=== PATIENT | female | born 1990 | race African-American/Black ===

== ENCOUNTER 2016-08-09 19:05 | Emergency (ER) | payer OTHER ==
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
[2016-08-09] MEDS ORDERED: IBUPROFEN 600 MG TABLET (FP) PO ONE ×2 (19:36→19:53)
[2016-08-09 19:49] VITALS: BP 115/70; PULSE 75; TEMP 98.1; BMI 30.7
== END 2016-08-09 20:00 | disposition home or self-care (01) ==
LOC: FER 19:05
DX: S16.1XXA Strain of muscle, fascia and tendon at neck level, initial encounter (principal); S39.012A Strain of muscle, fascia and tendon of lower back, initial encounter; V43.62XA Car passenger injured in collision with other type car in traffic accident, initial encounter; Y93.89 Activity, other specified; Y92.410 Unspecified street and highway as the place of occurrence of the external cause
CPT/HCPCS: 99282-25

== ENCOUNTER 2017-01-04 18:10 | Emergency (ER) | payer SELFPAY ==
[2017-01-04 18:18] VITALS: BP 107/65; PULSE 89; TEMP 99.4; BMI 32.8
[2017-01-04] MEDS ORDERED: IBUPROFEN 600 MG TABLET (FP) PO ONE ×2 (18:35→18:37)
[2017-01-04] MEDS ORDERED: SULFAMETHOXAZOLE/TRIMETHOPRIM 800MG/160MG D.S. TABLET PO ONE (18:35)
--- NOTE | 2017-01-04 18:35 | PDOC ---
History of Present Illness <Eli Hester - Last Filed: 01/04/17 18:36> - General History Source: Patient Exam Limitations: No Limitations - History of Present Illness Initial Comments: 01/04/17 18:39 The patient is a 26 year old female, with a significant past medical history of abscesses on her buttocks s/p drainage, who presents to the emergency department with an abscess on the right side of her buttocks for the past 2 days. She reports that the abscess has now become painful. She describes her pain as mild, without radiation. She notes that the pain is exacerbated when she sits down. The patient denies fever, chills, nausea, vomit, diarrhea and constipation. Denies dysuria, frequency, urgency and hematuria. Allergies: None Past surgical history: None reported Social history: Alcohol use. No tobacco or drug use reported <Delfino Lynn - Last Filed: 01/04/17 18:39> - General Chief Complaint: Abscess Boil Stated Complaint: right buttox boil Past History - Past Medical History Other medical history: denies - Psycho/Social/Smoking Cessation Hx Anxiety: No Suicidal Ideation: No Smoking History: Never smoked Number of Cigarettes Smoked Daily: 4 Information on smoking cessation initiated: Yes 'Breaking Loose' booklet given: 01/04/17 Hx Alcohol Use: No Drug/Substance Use Hx: No Substance Use Type: Alcohol <MirEli - Last Filed: 01/04/17 18:36> <Delfino Lynn - Last Filed: 01/04/17 18:39> - Past Medical History Allergies/Adverse Reactions: Allergies Allergy/AdvReac Type Severity Reaction Status Date / Time No Known Allergies Allergy Verified 01/04/17 18:11 Home Medications: Ambulatory Orders Ibuprofen 600 mg PO TID PRN #30 tablet MDD 3 01/04/17 Sulfamethoxazole/Trimethoprim [Bactrim Ds Tablet] 1 each PO BID #14 tablet 01/04 Review of Systems - Review of Systems Able to Perform ROS?: Yes Comments:: 01/04/17 18:39 GENERAL/CONSTITUTIONAL: No fever or chills. No weakness. HEAD, EYES, EARS, NOSE AND THROAT: No change in vision. No ear pain or discharge. No sore throat. CARDIOVASCULAR: No chest pain or shortness of breath RESPIRATORY: No cough, wheezing, or hemoptysis. GASTROINTESTINAL: No nausea, vomiting, diarrhea or constipation. GENITOURINARY: No dysuria, frequency, or change in urination. MUSCULOSKELETAL: No joint or muscle swelling or pain. No neck or back pain. SKIN: (+) Right buttocks abscess. NEUROLOGIC: No headache, vertigo, loss of consciousness, or change in strength/ sensation. ENDOCRINE: No increased thirst. No abnormal weight change HEMATOLOGIC/LYMPHATIC: No anemia, easy bleeding, or history of blood clots. ALLERGIC/IMMUNOLOGIC: No hives or skin allergy. <Delfino Lynn - Last Filed: 01/04/17 18:39> *Physical Exam - Vital Signs Last Vital Signs Temp Pulse Resp BP Pulse Ox 99.4 F 89 18 107/65 100 01/04/17 18:11 01/04/17 18:11 01/04/17 18:11 01/04/17 18:11 01/04/17 18:11 <Eli Hester - Last Filed: 01/04/17 18:36> - Vital Signs Last Vital Signs Temp Pulse Resp BP Pulse Ox 99.4 F 89 18 107/65 100 01/04/17 18:11 01/04/17 18:11 01/04/17 18:11 01/04/17 18:11 01/04/17 18:11 - Physical Exam Comments: 01/04/17 18:39 GENERAL: Awake, alert, and fully oriented, in no acute distress HEAD: No signs of trauma, normocephalic, atraumatic EYES: PERRLA, EOMI, sclera anicteric, conjunctiva clear ENT: Auricles normal inspection, hearing grossly normal, nares patent, oropharynx clear without exudates. Moist mucosa NECK: Normal ROM, supple, no lymphadenopathy, JVD, or masses LUNGS: No distress, speaks full sentences, clear to auscultation bilaterally HEART: Regular rate and rhythm, normal S1 and S2, no murmurs, rubs or gallops, peripheral pulses normal and equal bilaterally. ABDOMEN: Soft, nontender, normoactive bowel sounds. No guarding, no rebound. No masses EXTREMITIES: Normal inspection, Normal range of motion, no edema. No clubbing or cyanosis. SKIN: (+) Right buttock 2 by 1 inch indurated area with central fluctuance and a small abrasion. Warm, Dry, normal turgor. <Delfino Lynn - Last Filed: 01/04/17 18:39> Procedures - Incision and Drainage I&D Site: Right: Buttock Betadine cleansed: Yes Anesthesia: 1% Lidocaine Blade Size: 11 Attempts: 1 Plain Packing: No Complications: none Dressing: Yes Progress: 01/04/17 18:36 express 2 ml purulence. no packing placed. <Eli Hester - Last Filed: 01/04/17 18:36> Medical Decision Making - Medical Decision Making 01/04/17 18:33 26 yo F with no pmhx here wtih /co right buttock pain/ boil. stats started 2 days ago. now got worse has had similar in the past which required draining. no f/c no vaginal discharge. no urinary complaints. no difficulty with bm. not . on exam awake alert lung and heart exam normal. abd soft NT. right buttock with 2 x 3 in abscess indurated, erythematous. plan: i &D, irrigate. abx. dc . <Eli Hester - Last Filed: 01/04/17 18:36> *DC/Admit/Observation/Transfer - Discharge Dispostion Admit: No <Eli Hester - Last Filed: 01/04/17 18:36> - Attestations Scribe Attestion: 01/04/17 18:39 Documentation prepared by Delfino Lynn, acting as remote medical coder for Eli Hester MD <Delfino Lynn - Last Filed: 01/04/17 18:39> Diagnosis at time of Disposition: Abscess - Discharge Dispostion Condition at time of disposition: Stable - Prescriptions Prescriptions: Sulfamethoxazole/Trimethoprim [Bactrim Ds Tablet] 1 each PO BID #14 tablet Ibuprofen 600 mg PO TID PRN #30 tablet MDD 3 PRN Reason: Pain
[2017-01-04] MEDS ORDERED: SULFAMETHOXAZOLE/TRIMETHOPRIM 800MG/160MG D.S. TABLET ONE (18:38)
== END 2017-01-04 18:44 | disposition home or self-care (01) ==
LOC: FER 18:10
PROC: 0H98XZZ Drainage of Buttock Skin, External Approach (ICD-10-PCS; principal; 2017-01-04)
DX: L02.31 Cutaneous abscess of buttock (principal)
CPT/HCPCS: 99282-25

== ENCOUNTER 2020-09-03 04:30 | Day surgery (SDC) | payer OTHER ==
[2020-09-03 11:46] VITALS: BMI 35.2
[2020-09-03] MEDS ORDERED: LIDOCAINE HCL 1%, 10 MG/ML (20ML VIAL) ONE (12:44)
[2020-09-03] MEDS ORDERED: PROPOFOL 20 ML ONE ×2 (12:48)
[2020-09-03] MEDS ORDERED: MIDAZOLAM HCL 2 MG/2 ML SINGLE DOSE VIAL ONE (12:48)
[2020-09-03] MEDS ORDERED: ceFAZolin SODIUM 1 GM VIAL IVPB ONE (13:14)
[2020-09-03] MEDS ORDERED: LIDOCAINE HCL 1%, 10 MG/ML (20ML VIAL) NR ONE (13:21)
[2020-09-03] MEDS ORDERED: BACITRACIN 15 GM TUBE TOPICAL OINTMENT TP ONE (13:33)
[2020-09-03] MEDS ORDERED: oxyCODONE HCL 5 MG TABLET PO PRN (14:20)
[2020-09-03] MEDS ORDERED: ONDANSETRON 4 MG/2 ML VIAL IVPUSH PRN (14:20)
[2020-09-03] MEDS ORDERED: LACTATED RINGERS SOLUTION 1,000 ML IV SCH (14:30)
[2020-09-03] MEDS ORDERED: oxyCODONE HCL 5 MG TABLET ONE (15:57)
[2020-09-03 17:14] VITALS: BP 99/60; PULSE 84; TEMP 98.6
== END 2020-09-03 16:45 | disposition home or self-care (01) ==
LOC: JASU-SURG 04:30
PROVIDERS: ATTEND Surgery
PROC: 0HBT0ZX Excision of Right Breast, Open Approach, Diagnostic (ICD-10-PCS; principal; 2020-09-03 12:00)
DX: D24.1 Benign neoplasm of right breast (principal)
CPT/HCPCS: 84703; 88305-TC; 94760

== ENCOUNTER 2020-09-18 01:29 | Emergency (ER) | payer OTHER ==
[2020-09-18 01:50] VITALS: BP 110/61; PULSE 98; TEMP 98.5; BMI 38.3
== END 2020-09-18 03:55 | disposition home or self-care (01) ==
LOC: JER 01:29
DX: T81.31XA Disruption of external operation (surgical) wound, not elsewhere classified, initial encounter (principal)
CPT/HCPCS: 99282-25

== ENCOUNTER 2021-03-01 19:46 | Emergency (ER) | payer OTHER ==
[2021-03-01 19:57] VITALS: BMI 36.0
[2021-03-01] MEDS ORDERED: DALBAVANCIN HCL 1,500 MG in DEXTROSE 5%-WATER - 500 ML IVPB ONE (20:08)
[2021-03-01] MEDS ORDERED: DALBAVANCIN HCL 500 MG VIAL (RESTRICTED TO ID ONLY) IVPB ONE (20:31)
[2021-03-01 20:45] LABS: BASO % 0.6 % (0-2.0); EOS % 0.6 % (0-4.5); HEMATOCRIT 33.8 % (32.4-45.2); HEMOGLOBIN 11.2 GM/dL (10.7-15.3); LYMPH % 16.1 % (8-40); MCH 30.1 pg (25.7-33.7); MCHC 33.2 g/dl (32.0-36.0); MEAN CELL VOLUME 90.6 fl (80-96); MEAN PLT VOLUME 8.9 fl (7.5-11.1); NEUT % 75.7 % (42.8-82.8); PLATELET COUNT 324 10^3/uL (134-434); RBC 3.73 M/mm3 (3.60-5.2); RDW 12.9 % (11.6-15.6); WHITE BLOOD COUNT 12.2 K/mm3 (4.0-10.0)
[2021-03-01 21:04] LABS: CHLORIDE 103 mmol/L (98-107); SODIUM 134 mmol/L (136-145)
[2021-03-01 21:06] LABS: ALBUMIN 3.6 g/dl (3.4-5.0); BLOOD UREA NITROGEN 6.9 mg/dL (7-18); CALCIUM 8.6 mg/dL (8.5-10.1); CO2 27 mmol/L (21-32); GLUCOSE,RANDOM 82 mg/dL (74-106)
[2021-03-01 21:09] LABS: CREATININE 0.8 mg/dL (0.55-1.3); SGOT/AST 58 U/L (15-37); SGPT/ALT 32 U/L (13-61)
[2021-03-01 21:11] LABS: BILIRUBIN,TOTAL 1.2 mg/dL (0.2-1); TOT PROT 8.6 g/dl (6.4-8.2)
[2021-03-01 21:12] LABS: ALK PHOS 99 U/L (45-117)
[2021-03-01 21:33] LABS: ANION GAP 4 MMOL/L (8-16)
[2021-03-01] MEDS ORDERED: ACETAMINOPHEN 1000 MG/100 ML VIAL (NON FORMULARY) IVPB ONE (22:56)
[2021-03-01] MEDS ORDERED: ACETAMINOPHEN INJECTION 100 ML IVPB ONE (22:57)
[2021-03-01] MEDS ORDERED: SODIUM CHLORIDE 0.9% 500 ML INFUS.BAG IV ONE (22:59)
[2021-03-01] MEDS ORDERED: ONDANSETRON 4 MG/2 ML VIAL IVPUSH ONE (22:59)
[2021-03-01] MEDS ORDERED: ONDANSETRON 4 MG/2 ML VIAL ONE (23:11)
[2021-03-01 23:27] LABS: BLOOD UREA NITROGEN 7.2 mg/dL (7-18); CALCIUM 8.3 mg/dL (8.5-10.1)
[2021-03-01 23:32] LABS: CREATININE 0.8 mg/dL (0.55-1.3)
[2021-03-02 00:48] VITALS: BP 97/60; PULSE 108; TEMP 101.8
== END 2021-03-02 01:32 | disposition left against medical advice (07) ==
LOC: JER 19:46 → JERFT 19:46 → JER 03-02 01:32
PROC: 3E033GC Introduction of Other Therapeutic Substance into Peripheral Vein, Percutaneous Approach (ICD-10-PCS; principal; 2021-03-01)
DX: L02.31 Cutaneous abscess of buttock (principal)
CPT/HCPCS: 36415; 72193-TC; 80048; 80053; 84702; 85025; 99285-25; J0131; J0875; Q9967

== ENCOUNTER 2021-03-03 13:41 | Emergency (ER) | payer OTHER ==
[2021-03-03 14:08] VITALS: BP 113/77; PULSE 86; TEMP 98.2; BMI 36.0
[2021-03-03] MEDS ORDERED: IBUPROFEN 400 MG TABLET (FP) PO ONE ×2 (15:47→16:19)
== END 2021-03-03 18:32 | disposition home or self-care (01) ==
LOC: JERFT 13:41
PROC: 0H98XZZ Drainage of Buttock Skin, External Approach (ICD-10-PCS; principal; 2021-03-03)
DX: L02.31 Cutaneous abscess of buttock (principal)
CPT/HCPCS: 10060; 99283-25